=== PATIENT | female | born 1970 | race Two or more races ===

== ENCOUNTER 2018-01-15 13:28 | Emergency (ER) | payer MEDICAID, OTHER ==
[~2018-01-15] VITALS: Ht 167.6 cm; Wt 81.6 kg
[~2018-01-15 13:28] MED LIST: NOR10T
[2018-01-15] MEDS ORDERED: KETOROLAC TROMETH 60MG/2ML VIAL IM ONE (15:30)
[2018-01-15 17:20] VITALS: BP 132/86
== END 2018-01-15 17:50 | disposition home or self-care (01) ==
LOC: ER 13:28
DX: S30.0XXA Contusion of lower back and pelvis, initial encounter (principal); N20.0 Calculus of kidney; J45.909 Unspecified asthma, uncomplicated; E11.9 Type 2 diabetes mellitus without complications; Z98.51 Tubal ligation status; Z88.8 Allergy status to other drugs, medicaments and biological substances; W01.0XXA Fall on same level from slipping, tripping and stumbling without subsequent striking against object, initial encounter; Y93.89 Activity, other specified; Y99.8 Other external cause status; Y92.89 Other specified places as the place of occurrence of the external cause
CPT/HCPCS: 72100; 96372; 99284; J1885